=== PATIENT | female | born 1955 | race Caucasian/White ===

== ENCOUNTER 2023-12-28 08:55 | Outpatient (OUT) | payer MEDICARE, OTHER, SELFPAY ==
--- NOTE | 2023-12-28 09:02 | XR_ITS ---
[address] [address] Patient Name: JOSEPH ABDALLA MRN: [id number] date: 1955 Sex: F Assigned Patient Location: [facility] Current Patient Location: [facility] Accession/Order Number: [id number] Exam Date: 12/28/2023 09:10 Report Date: 12/28/2023 09:25 At the request of: ALICE VILLALPANDO Procedure: XR DEXA axial skeleton EXAMINATION: XR DEXA axial skeleton, 12/28/2023 9:10 AM EDT HISTORY: E28.39 COMPARISON: None. TECHNIQUE: Dual-energy X-ray absorptiometry (DEXA) bone density study performed for the axial skeleton. HISTORY: E28.39 FINDINGS: Bone mineral density AP spine L1-L4 measures 1.497 g/sq cm. T score 2.6. WHO classification: Normal. Bone mineral density is lowest in the right femoral neck measuring 1.002 g/sq cm. T score -0.3. WHO classification: Normal XR/XR DEXA axial skeleton IMPRESSION: Normal bone mineral density. Low fracture risk Pharmacologic treatment recommendations * No uniform recommendation applies to all patients. Management plans must be individualized. * Consider initiating pharmacologic treatment in postmenopausal women and men >= 50 years of age who have the following: Primary fracture prevention: * T-score <= - 2.5 at the femoral neck, total hip, lumbar spine, 33% radius (some uncertainty with existing data) by DXA. * Low bone mass (osteopenia: T-score between - 1.0 and - 2.5) at the femoral neck or total hip by DXA with a 10-year hip fracture risk >= 3% or a 10-year major osteoporosis-related fracture risk >= 20% (i.e., clinical vertebral, hip, forearm, or proximal humerus) based on the [place]-adapted FRAXregistered model. Secondary fracture prevention: * Fracture of the hip or vertebra regardless of BMD [4, 5]. * Fracture of proximal humerus, pelvis, or distal forearm in persons with low bone mass (osteopenia: T-score between - 1.0 and - 2.5). The decision to treat should be individualized in persons with a fracture of the proximal humerus, pelvis, or distal forearm who do not have osteopenia or low BMD [12, 13]. Lay MS, Deeapli SL, Beatrice KL, Shailesh EM, Luis KG, AJ, Jos ES. The clinician's guide to prevention and treatment of osteoporosis. Osteoporos Int. 2021;33(10):1380-5789. doi: 10.1007/z42336-047-95474-l. Epub 2021Oct 31. Erratum in: Osteoporos Int. 2021Jan 30;: PMID: [id number]; PMCID: [id number]. Electronically authenticated by: EDDIE PAZ Date: 12/28/2023 09:25
== END 2023-12-28 08:56 | disposition home or self-care (01) ==
LOC: RAD 08:55
PROVIDERS: PCP Family Medicine; Visit Provider Family Medicine
DX: E28.39 Other primary ovarian failure (principal)
CPT/HCPCS: 77080